=== PATIENT | male | born 1995 | race Caucasian/White ===

== ENCOUNTER 2017-08-30 21:21 | Emergency (ER) | payer OTHER ==
[2017-08-30 22:22] VITALS: BP 117/87
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
[2017-08-31] MEDS ORDERED: FLEXERIL PO ONE (01:29)
[2017-08-31] MEDS ORDERED: MOTRIN PO ONE ×2 (01:29→01:51)
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
== END 2017-08-31 01:56 | disposition home or self-care (01) ==
LOC: ED 21:21
DX: M62.838 Other muscle spasm (principal); M54.2 Cervicalgia; M54.5 Low back pain; M54.6 Pain in thoracic spine; V49.9XXA Car occupant (driver) (passenger) injured in unspecified traffic accident, initial encounter; Y93.89 Activity, other specified; Y99.8 Other external cause status; Y92.410 Unspecified street and highway as the place of occurrence of the external cause
CPT/HCPCS: 72125; 72128; 72131